=== PATIENT | female | born 1965 | race Caucasian/White ===

== ENCOUNTER → 2021-08-10 15:30 | Outpatient (CLI) | payer BC, SELFPAY ==
--- NOTE | ~2021-08-10 | MR_ITS ---
EXAMINATION: MR brain/brain stem wo/w con DATE: 08/10/2021 16:22 INDICATION: Transient visual loss, right eye. TECHNIQUE: Magnetic resonance imaging (MRI) of the brain and brainstem was performed without and with 14 mL MultiHance intravenous contrast. Sequences included sagittal and axial T1-weighted FSE, axial diffusion-weighted FS EPI, axial T2*-weighted GRE, axial T2-weighted FLAIR Propeller, and axial T2-we ighted Propeller. Postcontrast sequences included axial and coronal T1-weighted FSE. Apparent diffusi on coefficient (ADC) maps were created. COMPARISON: None. FINDINGS: There are scattered areas of nonspecific increased T2-weighted signal intensity in the cere bral white matter, which is within normal limits for the patient's age. There is no intracranial hemo rrhage, acute infarction, or abnormal intracranial mass lesion. The ventricles are normal in size. Th e orbits are normal. The mastoid air cells are normal. The paranasal sinuses are clear. IMPRESSION: 1. Normal aging brain. Reviewed, dictated and finalized at location A. ING SUPERVISOR IMPRESSION: 1. Normal aging brain.
[2021-08-10 15:59] LABS: Estimated Glomerular Filt Rate 57
== END ==
PROVIDERS: PCP Family Medicine Sports Medicine; Visit Provider Family Medicine Sports Medicine
DX: H53.121 Transient visual loss, right eye (principal)
CPT/HCPCS: 70553; A9577

== ENCOUNTER 2023-02-18 13:12 | Outpatient (CLI) | payer OTHER, SELFPAY ==
--- NOTE | ~2023-02-18 | MMUS_ITS ---
EXAMINATION: MM diagnostic helen LT w mitali, US breast LT limited HISTORY: Reported outside abnormal screening mammogram of left breast TECHNIQUE: Full field and spot ML, MLO and CC 3-D tomosynthesis images of the left breast were perfor med and synthetic 2-D images were generated. CAD analysis was submitted and interpreted. High resolut ion upper outer and lower-outer quadrant left breast ultrasound was performed. COMPARISON: None BREAST PARENCHYMAL COMPOSITION: The breasts are heterogeneously dense, which may obscure small masses . FINDINGS: MAMMOGRAPHIC FINDINGS: There is a spiculated irregular masses in the outer posterior left breast on CC projection, approxima tely in the 3:00 area. This is very suspicious for malignancy. ULTRASOUND: 4:00 5 cm from nipple: Irregular hypoechoic approximately 2 cm mass with internal vascularity and pro minent posterior shadowing, highly suggestive of malignancy. 2:00 4 cm from nipple: 3.6 mm cyst IMPRESSION: 1. 2 cm irregular spiculated mass of left breast at 4:00 5 cm from nipple, highly suggestive of malig red 2. Ultrasound-guided biopsy of left breast 4:00 lesion is recommended BI-RADS category 5, highly suggestive of malignancy. Reviewed, dictated and finalized at location A. IMPRESSION: 1. 2 cm irregular spiculated mass of left breast at 4:00 5 cm from nipple, high ly suggestive of malignancy 2. Ultrasound-guided biopsy of left breast 4:00 lesion is recommended BI-RADS category 5, highly suggestive of malignancy.
== END 2023-02-18 13:13 | disposition home or self-care (01) ==
PROVIDERS: PCP Family Medicine Sports Medicine; Visit Provider Obstetrics & Gynecology
DX: R92.8 Other abnormal and inconclusive findings on diagnostic imaging of breast (principal)
CPT/HCPCS: 76642; 77061; 77065; G0279

== ENCOUNTER 2023-02-28 09:01 | Outpatient (CLI) | payer OTHER, SELFPAY ==
--- NOTE | ~2023-02-28 | MMUS_ITS ---
MM post biopsy invasive LT, US breast biopsy LT w image EXAMINATION: US GUIDED NEEDLE BIOPSY WITH VACUUM ASSISTANCE DATE: 02/28/2023 10:18 CDT INDICATION: Left breast mass seen on prior examination. Ultrasound-guided core biopsy is requested t o evaluate for malignancy. TECHNIQUE AND FINDINGS: The risks and potential benefits of the procedure were discussed with the patient, and written inform ed consent was obtained. After sterile preparation of the left breast, 1% lidocaine was utilized for local anesthesia. 1% lidocaine with epinephrine was used for deep anesthesia. A 10G vacuum-assisted biopsy gun needle was advanced through to the outer edge of the region of inter est from a lateral approach utilizing sonographic guidance. A total of 4 tissue core samples were ob tained through the lesion. An Inrad tissue marker clip was then placed at the biopsy site. Hemostasi s was achieved. The patient tolerated procedure well and there was no evidence of immediate complication. The patien t was given verbal instructions partly is from the department. Left breast mammograms to document ti ssue marker clip placement. The tissue samples were submitted to surgical pathology for histologic an alysis. IMPRESSION: 1. Successful ultrasound-guided vacuum-assisted biopsy of left breast mass with tissue marker placem ent. Please refer to pathology report for histologic analysis. Reviewed, dictated and finalized at location A. IMPRESSION: 1. Successful ultrasound-guided vacuum-assisted biopsy of left breast mass wit h tissue marker placement. Please refer to pathology report for histologic anal ysis.
== END 2023-02-28 09:02 | disposition home or self-care (01) ==
PROVIDERS: PCP Family Medicine Sports Medicine; Visit Provider Obstetrics & Gynecology
DX: N63.20 Unspecified lump in the left breast, unspecified quadrant (principal); C50.512 Malignant neoplasm of lower-outer quadrant of left female breast
CPT/HCPCS: 19083; 88305; 88342; 88360; A4648

== ENCOUNTER 2023-05-12 18:37 | Emergency (ER) | payer OTHER, SELFPAY ==
--- NOTE | ~2023-05-12 | XR_ITS ---
EXAMINATION: XR chest 1V portable DATE: 05/12/2023 19:53 INDICATION: Fever 2 days post bilateral mastectomies TECHNIQUE: frontal view of the chest was obtained. COMPARISON: None FINDINGS: The lungs are clear with no focal airspace opacities, pulmonary edema, pleural effusion or pneumothor ax. The cardiomediastinal silhouette is normal. Postoperative change of bilateral mastectomies with b reast expanders and surgical drains at the bilateral mastectomy beds. IMPRESSION: 1. No acute cardiopulmonary disease. Reviewed, dictated and finalized at location A. ICAL BUSINESS ANALYST
[2023-05-12 18:45] VITALS: BP 130/62; PULSE 104; RESP 18; TEMP 37; O2SAT 100
[2023-05-12 19:25] VITALS: BP 129/73; PULSE 100; RESP 15; TEMP 36.7; O2SAT 100
[2023-05-12 20:53] LABS: Influenza A QL RT-PCR Negative (Negative); Influenza B QL RT-PCR Negative (Negative); RSV RNA, RT-PCR Negative (Negative); SARS-CoV-2 RNA PCR Negative (Negative)
[2023-05-12 20:56] LABS: Basophils Percent Auto 0.5 % (0.2-1.2); Eosinophils Absolute Auto 0.3 K/mm3 (0-0.3); Hematocrit 36.1 % (37.0-47.0); Hemoglobin 11.4 g/dL (12.0-15.0); Immature Granulocyte Absolute 0.01 K/mm3 (0.00-0.031); Immature Granulocyte Percent A 0.1 % (0-0.5); Lymphocytes Absolute Auto 2.32 K/mm3 (0.9-3.2); Lymphocytes Percent Auto 26.7 % (18.3-44.2); Mean Corpuscular HGB Conc 31.6 g/dl (32-36); Mean Corpuscular Hemoglobin 30.3 pg (26-34); Mean Platelet Volume 10.4 fl (7.4-10.4); Monocytes Absolute Auto 0.7 K/mm3 (0.1-0.6); Monocytes Percent Auto 7.7 % (2.6-8.5); Neutrophils Absolute Auto 5.4 K/mm3 (1.3-6.7); Platelet Count Result 300 k/mm3 (150-375); Red Blood Count 3.76 M/mm3 (4.2-5.4); Red Cell Distribution Width 13.7 % (11.5-14.5); White Blood Count 8.7 K/mm3 (4.5-10.0)
[2023-05-12 21:03] LABS: Appearance Urine Cloudy (Clear); Bacteria Urine None Seen /hpf; Bilirubin Urine Negative (Negative); Blood Urine Negative (Negative); Color Urine Yellow (Yellow); Glucose Urine UA Negative (Negative); Ketones Urine Trace mg/dL (Negative); Leukocyte Esterase Ur Trace LEU/UL (Negative); Nitrate Urine Negative (Negative); Non Pathogenic Casts 0-2; Protein Urine Negative (Negative); RBC Urine 0-2 /hpf (0-2); Specific Grav Ur 1.033 (1.001-1.035); Squamous Epithelial Cell Urine Many /hpf (Few); pH Urine 5.5 (5.0-9.0)
[2023-05-12 21:04] LABS: Add Urine Microscopic? YES
[2023-05-12 21:10] LABS: Alanine Aminotransferase 17 U/L (6-35); Albumin Level 3.9 g/dL (3.5-5.1); Alkaline Phosphatase 79 U/L (38-126); Anion Gap 8 mmol/L (8-16); Aspartate Amino Transferase 36 U/L (14-36); Bilirubin,Total 0.4 mg/dL (0.2-1.3); Blood Urea Nitrogen 15 mg/dL (7-17); Calcium 8.7 mg/dL (8.4-10.2); Carbon Dioxide 27 mmol/L (22-30); Chloride 103 mmol/L (98-107); Estimated CRCL calculation 56 ml/min; Estimated Glomerular Filt Rate > 60; Glucose 89 mg/dL (65-110); Potassium 4.1 mmol/L (3.4-5.0); Sodium 138 mmol/L (137-145)
--- NOTE | 2023-05-12 22:05 | ED.GENADULT ---
HPI - General Adult General Chief complaint: Fever Stated complaint: FEVER S/P BILATERAL MASECTOMY AT [facility] 05/10/23 Time Seen by Provider: 05/12/23 19:29 History of Present Illness HPI narrative: patient 57-year-old male presents emerged from with chief complaint of fever. Patient was just recently discharged from [facility] min after she had a bilateral mastectomy the patient states she had a temperature up to 102 at home has been taking Tylenol. The patient states she is otherwise not felt sick denies cough denies vomiting or diarrhea reports that her incision sites looked well Related Data Allergies Allergy/AdvReac Type Severity Reaction Status Date / Time benzoin Allergy Other Verified 05/12/23 18:54 lactose Allergy Diarrhea Verified 05/12/23 18:54 ibuprofen AdvReac Other Verified 05/12/23 18:54 BACTRIM Allergy Unknown Unknown Uncoded 05/12/23 18:49 SULFAMETHOXAZOLE (Generic Allergy Y Uncoded 05/12/23 18:49 Allergy) TRIMETHOPRIM SULFATE Allergy Y Uncoded 05/12/23 18:49 (Generic Allergy) Review of Systems Review of Systems: A 10 system review of systems was completed on the patient and is negative except for what is stated in the HPI. Nursing and ancillary documentation was reviewed. Exam Narrative: GENERAL: Well-appearing, well-nourished, and in no acute distress. HEAD: Normocephalic, atraumatic. EYES: PERRLA and EOMI. ENT: Nares clear, no rhinorrhea or epistaxis. Mucous membranes moist. NECK: Supple. CHEST: Clear to auscultation. No respiratory distress. incision sites are well approximated no erythema no purulent drainage drains are intact and draining correctly HEART: Regular rate and rhythm. No murmur heard. Normal peripheral pulses. ABDOMEN: Soft, nontender, nondistended, normal active bowel sounds. EXTREMITIES: Normal range of motion. No edema. SKIN: Warm, dry, no rash. NEURO: No focal deficits. Alert and oriented x3. PSYCH: Normal mood and affect. Course Vital Signs Vital signs: Vital Signs Temperature 37.0 C 05/12/23 18:45 Pulse Rate 104 H 05/12/23 18:45 Respiratory Rate 18 05/12/23 18:45 Blood Pressure 130/62 05/12/23 18:45 Pulse Oximetry 100 05/12/23 18:45 Oxygen Delivery Room Air 05/12/23 18:45 Temperature 36.7 C 05/12/23 19:25 Pulse Rate 100 05/12/23 19:25 Respiratory Rate 15 05/12/23 19:25 Blood Pressure 129/73 05/12/23 19:25 Pulse Oximetry 100 05/12/23 19:25 Oxygen Delivery Room Air 05/12/23 18:45 Medical Decision Making MDM Narrative Medical decision making narrative: differential diagnosis includes pneumonia, COVID, influenza, UTI, laboratory studies were obtained which show a normal white blood cell count CMP was within normal limits urinalysis did show several white blood cells in the urine but there were many squamous cells this is a considered probably a contaminated urine specimen a culture has been sent. The patient is currently on antibiotics chest x-ray showed no focal infiltrate Vital Signs Vital Signs: Vital Signs Temperature 37.0 C 05/12/23 18:45 Pulse Rate 104 H 05/12/23 18:45 Respiratory Rate 18 05/12/23 18:45 Blood Pressure 130/62 05/12/23 18:45 Pulse Oximetry 100 05/12/23 18:45 Oxygen Delivery Room Air 05/12/23 18:45 Temperature 36.7 C 05/12/23 19:25 Pulse Rate 100 05/12/23 19:25 Respiratory Rate 15 05/12/23 19:25 Blood Pressure 129/73 05/12/23 19:25 Pulse Oximetry 100 05/12/23 19:25 Oxygen Delivery Room Air 05/12/23 18:45 Lab Data 05/12/23 20:51 05/12/23 20:51 Labs: Lab Results 05/12/23 05/12/23 05/12/23 Range/Units 20:11 20:51 20:55 WBC 8.7 (4.5-10.0) K/mm3 RBC 3.76 L (4.2-5.4) M/mm3 Hgb 11.4 L (12.0-15.0) g/dL Hct 36.1 L (37.0-47.0) % MCV 96.0 (80-100) fl MCH 30.3 (26-34) pg MCHC 31.6 L (32-36) g/dl RDW 13.7 (11.5-14.5) % Plt Count 300 (150-375) k/mm3 MPV 1
[2023-05-12 22:33] VITALS: BP 123/72; PULSE 88; RESP 12; TEMP 36.4; O2SAT 100
== END 2023-05-12 22:35 | disposition home or self-care (01) ==
PROVIDERS: Emergency Provider Emergency Medicine; PCP Family Medicine Sports Medicine
DX: R50.9 Fever, unspecified (principal); Z20.822 Contact with and (suspected) exposure to COVID-19; Z90.13 Acquired absence of bilateral breasts and nipples
CPT/HCPCS: 36415; 71045; 80053; 81001; 83605; 85025; 87086; 87637; 99283